=== PATIENT | female | born 1995 ===

== ENCOUNTER 2024-10-05 10:01 | Emergency (ER) | payer OTHER, MEDICAID, SELFPAY ==
[2024-10-05 10:12] VITALS: BP 122/58; PULSE 73; RESP 20; TEMP 36.2; O2SAT 99; BMI 54.6
--- NOTE | 2024-10-05 12:15 | ED_ITS ---
HPI - General Adult General Chief complaint: Ear Problems Stated complaint: Something stuck in ear Time Seen by Provider: 10/05/24 12:06 Source: patient Limitations: no limitations History of Present Illness HPI narrative: 29-year-old female presents for evaluation of foreign body in her right ear. 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 She reports attempting to remove it with tweezers but was unsuccessful. She denies any pain to the right ear. She denies any history of TM perforation. No tinnitus. She is otherwise feeling well. Related Data Allergies Allergy/AdvReac Type Severity Reaction Status Date / Time No Known Allergies (No Known Allergy Verified 10/05/24 10:14 Allergies*) Review of Systems ENT: Comments: No URI symptoms. No blood from the ear. PMFSH Social History Social History Advance Directives: No Advance Directives Information Provided: No Do you have a plan to hurt others: No Plan Physical Exam ED Vital Signs: Vital Signs - 24 hr 10/05/24 10:12 10/05/24 12:28 Temperature 97.2 F 97.2 F Pulse Rate 73 73 Respiratory Rate 20 20 Blood Pressure 122/58 L 122/58 L Pulse Oximetry 99 99 Oxygen Delivery Method Room Air Room Air BMI result Body Mass Index 54.6 HENMT Other: Left auditory canal is patent with a pearly white TM. Right auditory canal has a clear plastic foreign body within the auditory canal. Alligator forceps were used to remove the piece on the 1st attempt and in 1 piece. Inspection after removal indicates a clear auditory canal without any erythema or discharge. TM is intact, pearly white. No evidence of bleeding. Medical Decision Making Medical Decision Making MDM Narrative: 29-year-old female with foreign body in the right ear, easily removed using alligator forceps. Reviewed all discharge instructions. No further questions at this time. Differential Diagnosis Differential Diagnoses: The differential diagnosis associated with the presentation includes Right ear foreign body Right TM perforation Otitis externa Abrasion Discharge Plan Discharge Clinical Impression: Ear foreign body Patient Disposition: Home, Self-Care Instructions: Ear Foreign Body (ED) Additional Instructions: Do not place objects in your ear. Suggest a mixture of warm water and hydrogen peroxide to clean your ears, if needed. Follow-up with your primary care provider. Call this week to schedule a follow- up appointment. Return to the emergency department if you have any worsening of symptoms, or any concerns. Get well soon! Interventions: ED Discharge Assessment Last Done: 10/05/24 12:28 Discharge Date/Time: 10/05/24 12:29 Print Language: Irish
[2024-10-05 12:28] VITALS: BP 122/58; PULSE 73; RESP 20; TEMP 36.2; O2SAT 99
--- OUTSIDE RECORDS SUMMARY | 2024-10-05 12:29 | XMS_ITS | Clinical Summary ---
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 Role Phone Unavailable Primary Care Provider Unavailabl e Social History Tobacco Use Types Packs/Day Years Used Date Smoking Tobacco: Never Assessed Comments Unknown Sex and Gender Information Value Date Recorded Sex Assigned at Not on file Legal Sex Female 6:17 PM EST Gender Identity Not on file Sexual Orientation Not on file Plan of Treatment Health Maintenance Due Date Last Done Comments DTaP,Tdap,and Td Vaccines (1 - Tdap) 07/05/2014 Hepatitis B Vaccines (1 of 3 - 19+ 3-dose series) 07/05/2014 Cervical Cancer Screening: P ap Smear 07/05/2016 Depression Screening 02/25/2022 HIV Screening 02/25/2022 Hepatitis C Screening 02/25/2022 Social Influencers of Health Screening 02/25/2022 COVID-19 Vaccine ( - 2023-2 5 season) 2023 Influenza Vaccine (#1) 2024 HIB Vaccines Aged Out No longer eligi ble based on patient's age to complete this topic HPV Vaccines Aged Out No longer eligi ble based on patient's age to complete this topic Hepatitis A Vaccines Aged Out No long er eligible based on patient's age to complete this topic IPV Vaccines Aged Out No longer eligi ble based on patient's age to complete this topic MMR Vaccines Aged Out No longer eligi ble based on patient's age to complete this topic Meningococcal ACWY Vaccine Aged Out N o longer eligible based on patient's age to complete this topic Meningococcal B Vaccine Aged Out No l onger eligible based on patient's age to complete this topic Pneumococcal Vaccine: Pediat rics (0 to 5 Years) and At-Risk Patients (6 to 49 Years) Aged Out No longer eligible b ased on patient's age to complete this topic RSV Immunization Patients Un palma 20 months Aged Out No longer eligible b ased on patient's age to complete this topic Varicella Vaccines Aged Out No longer eligible based on patient's age to complete this topic
== END 2024-10-05 12:29 | disposition home or self-care (01) ==
PROVIDERS: Emergency Provider Emergency Medicine
DX: T16.1XXA Foreign body in right ear, initial encounter (principal); H92.01 Otalgia, right ear; W44.B0XA Plastic object unspecified, entering into or through a natural orifice, initial encounter; Y93.9 Activity, unspecified; Y92.9 Unspecified place or not applicable; Y99.8 Other external cause status
CPT/HCPCS: 69200; 99282; 99283